=== PATIENT | male | born 1965 | race Caucasian/White ===

== ENCOUNTER 2025-06-24 18:16 | Emergency (ER) | payer OTHER, SELFPAY ==
[2025-06-24 19:31] LABS: Hematocrit 46.7 % (42.0-52.0); Hemoglobin 16.5 g/dL (14.0-18.0); Mean Corpuscular Hemoglobin 30.6 pg (27.0-31.0); Mean Corpuscular Volume 86.5 fl (78.0-98.0); Platelet Count 224 10x3/uL (130-400); Red Blood Cell (RBC) Count 5.40 mill/uL (4.70-6.10); White Blood Cell (WBC) Count 6.0 10x3/uL (4.8-10.8)
[2025-06-24 19:45] LABS: ALT (SGPT) 13 U/L (Less than 45); AST (SGOT) 24 U/L (11-34); Albumin 3.6 g/dL (3.1-4.5); Alkaline Phosphatase 76 U/L (40-110); Anion Gap 18 mmol/L (10-20); BUN (Urea Nitrogen) 7 mg/dL (8.4-25.7); Bilirubin, Total 0.6 mg/dL (0.3-1.2); Calc. Creatinine Clearance 0 mL/min (70-130); Calcium 8.4 mg/dL (7.8-10.44); Carbon Dioxide 22 mmol/L (22-29); Chloride 102 mmol/L (98-107); Globulin 3.0 g/dL (2.4-3.5); Glucose 116 mg/dL (70-105); Lipase 31 U/L (8-78); Potassium 4.2 mmol/L (3.5-5.1); Sodium 138 mmol/L (136-145)
[2025-06-24 20:06] LABS: MDiff Complete? YES
[2025-06-24 20:11] LABS: Platelet Adequacy Comment Appears Adequate
== END 2025-06-24 20:10 ==
LOC: NAV ERS 18:16
DX: S00.31XA Abrasion of nose, initial encounter (principal); I10 Essential (primary) hypertension; V89.2XXA Person injured in unspecified motor-vehicle accident, traffic, initial encounter
CPT/HCPCS: 36415; 70450; 80053; 83690; 85025